=== PATIENT | female | born 1975 | race Caucasian/White ===

== ENCOUNTER 2019-12-05 18:11 | Emergency (ER) | payer OTHER ==
[2019-12-05 18:37] VITALS: BP 176/129; PULSE 88; TEMP 98; BMI 29.8
--- NOTE | 2019-12-05 18:39 | PDOC ---
Rapid Medical Evaluation Time Seen by Provider: 12/05/19 18:33 Medical Evaluation: Allergies Allergy/AdvReac Type Severity Reaction Status Date / Time No Known Allergies Allergy Verified 12/05/19 18:32 12/05/19 18:34 I performed a brief in-person evaluation of this patient. 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 Source patient reports she is healthy; patient presents per protocol. Does not wish to take PEP, but does want baseline labs drawn. Pertinent physical exam findings: Tiny puncture wound to left 3rd finger. BP 176/129 I have ordered the following: Post-exposure labs Patient to proceed to [facility] for further evaluation. Discharge Disposition - Diagnosis Needlestick injury accident - Referrals - Patient Instructions - Post Discharge Activity
[2019-12-05] MEDS ORDERED: DIPHTH,PERTUSS(ACELL),TET 0.5 ML DISP.SYRIN IM ONE ×2 (19:58→20:00)
--- NOTE | 2019-12-05 20:01 | PDOC ---
History of Present Illness - General Chief Complaint: Injury Stated Complaint: EVALUATION Time Seen by Provider: 12/05/19 18:33 - History of Present Illness Initial Comments: 12/05/19 19:59 44-year-old female with a past medical history of hypertension presents for evaluation of a needlestick. 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 She is here for tetanus shot. Hypodermic needle was 27-gauge and went through her glove and cause some bleeding in her left middle finger Past History - Past Medical History Allergies/Adverse Reactions: Allergies Allergy/AdvReac Type Severity Reaction Status Date / Time No Known Allergies Allergy Verified 12/05/19 18:32 Home Medications: Ambulatory Orders Amlodipine Besylate [Norvasc -] 5 mg PO DAILY 12/05/19 COPD: No Other medical history: DENIES - Immunization History Immunization Up to Date: Yes - Psycho Social/Smoking Cessation Hx Smoking History: Never smoked Hx Alcohol Use: No Drug/Substance Use Hx: No Review of Systems - Review of Systems Constitutional: Yes: See HPI *Physical Exam - Vital Signs Last Vital Signs Temp Pulse Resp BP Pulse Ox 98.0 F 88 18 176/129 H 98 12/05/19 18:32 12/05/19 18:32 12/05/19 18:32 12/05/19 18:32 12/05/19 18:32 - Physical Exam 12/05/19 19:59 GENERAL: The patient is awake, alert, and fully oriented, in no acute distress. HEAD: Normal with no signs of trauma. EYES: sclera anicteric, conjunctiva clear. Left middle finger skin color temperature normal range of motion is full no gross sensorimotor deficits puncture taye is not visible PSYCH: Normal mood, normal affect. SKIN: Warm, Dry, normal turgor, no rashes or lesions noted. Medical Decision Making - Medical Decision Making 12/05/19 20:00 Patient refused prophylactic treatment she is low risk at this point she is in contact with the source patient who is HIV negative hep B and C- as well. She requires only a tetanus injection. Discharge - Discharge Information Problems reviewed: Yes Clinical Impression/Diagnosis: Needlestick injury accident Condition: Stable Disposition: HOME - Admission No - Follow up/Referral Referrals: ON STAFF,NOT [Primary Care Provider] - - Patient Discharge Instructions Additional Instructions: Your tetanus shot was updated today. Return to the emergency room for further issues and follow-up with your primary care doctor in 1 to 2 days for further evaluation and treatment options. - Post Discharge Activity
== END 2019-12-05 20:07 | disposition home or self-care (01) ==
LOC: JERFT 18:11
PROC: 3E0234Z Introduction of Serum, Toxoid and Vaccine into Muscle, Percutaneous Approach (ICD-10-PCS; principal; 2019-12-05)
DX: Z77.21 Contact with and (suspected) exposure to potentially hazardous body fluids (principal); S61.233A Puncture wound without foreign body of left middle finger without damage to nail, initial encounter; W46.1XXA Contact with contaminated hypodermic needle, initial encounter; Y93.89 Activity, other specified; Y92.538 Other ambulatory health services establishments as the place of occurrence of the external cause; Y99.0 Civilian activity done for income or pay
CPT/HCPCS: 90715; 99281-25